=== PATIENT | male | born 1950 | race Asian ===

== ENCOUNTER 2018-11-10 19:30 | Emergency (ER) | payer OTHER ==
[~2018-11-10] VITALS: Ht 182.9 cm; Wt 125.6 kg
[2018-11-10 19:53] LABS: PLATELET COUNT 202 K/uL (142-355)
[2018-11-10] MEDS ORDERED: RISP1TAB PO (19:56)
[2018-11-10] MEDS ORDERED: GRALISE600 MG PO (19:56)
[2018-11-10] MEDS ORDERED: CITALOPRAM20 MG PO (19:57)
[2018-11-10] MEDS ORDERED: LORA1TAB17 PO (19:57)
[2018-11-10] MEDS ORDERED: K-TAB20 MEQ PO (19:58)
[2018-11-10] MEDS ORDERED: MINERI1 TOP (19:59)
[2018-11-10] MEDS ORDERED: QUETIAPINE400 MG PO (20:00)
[2018-11-10] MEDS ORDERED: HYDROCODONE BIT1 TA1 PO (20:00)
[2018-11-10] MEDS ORDERED: FURO20TA67 PO (20:01)
[2018-11-10] MEDS ORDERED: DOCU100C10 PO (20:01)
[2018-11-10] MEDS ORDERED: CARV6.25 PO (20:02)
[2018-11-10] MEDS ORDERED: CLARITIN10 MG PO (20:02)
[2018-11-10] MEDS ORDERED: BRIMONIDINE0.2 % OPTH (20:03)
[2018-11-10] MEDS ORDERED: BIOFREEZE4 % TOP (20:04)
[2018-11-10] MEDS ORDERED: ASPIR-8181 MG PO (20:04)
[2018-11-10] MEDS ORDERED: ASPERCREME LIDOCA4 % EX (20:05)
[2018-11-10] MEDS ORDERED: TYLENOL325 M1 PO (20:06)
[2018-11-10] MEDS ORDERED: TUMS500 MG PO (20:07)
[2018-11-10 20:08] LABS: POTASSIUM 4.4 mmol/L (3.6-5.2)
[2018-11-10] MEDS ORDERED: GABA300C2 PO (20:08)
[2018-11-10 22:40] VITALS: BP 140/80; TEMP 98.2
== END 2018-11-10 23:00 | disposition other institution (70) ==
LOC: ED 19:30
PROVIDERS: Emergency Medicine Emergency Medical Services
DX: F03.91 Unspecified dementia, unspecified severity, with behavioral disturbance (principal); I50.9 Heart failure, unspecified; Z04.6 Encounter for general psychiatric examination, requested by authority
CPT/HCPCS: 36415; 80053; 81000; 83880; 85027; 93005; 99285

== ENCOUNTER 2019-03-22 19:55 | Emergency (ER) | payer OTHER ==
[~2019-03-22] VITALS: Ht 185.4 cm; Wt 122.5 kg
[~2019-03-22 19:55] MED LIST: ABILIFY MYCITE15 MG PO; ASPERCREME LIDOCA4 % EX; ASPIR-8181 MG PO; BIOFREEZE4 % TOP; BRIMONIDINE0.2 % OPTH; CARV6.25 PO; CHOL100034 PO; CITALOPRAM20 MG PO; CLARITIN10 MG PO; DICL1GEL2 TOP; DOCU100C10 PO; ESCI10TA PO; FURO20TA67 PO; GABA300C2 PO; GRALISE600 MG PO; HYDROCODONE BIT1 TA1 PO; K-TAB20 MEQ PO; LORA1TAB17 PO; MINERI1 TOP; QUET100T2 PO; QUET300T PO; QUETIAPINE400 MG PO; RISP1TAB PO; TUMS500 MG PO; TYLENOL325 M1 PO; ZIPR80CA PO
[2019-03-22 20:00] VITALS: BP 164/92; TEMP 97.3
[2019-03-22 20:27] LABS: PLATELET COUNT 180 K/uL (142-355)
[2019-03-22 20:36] LABS: POTASSIUM 3.7 mmol/L (3.6-5.2)
[2019-03-22] MEDS ORDERED: LATUDA40 MG PO (22:51)
[2019-03-22] MEDS ORDERED: SEROQUEL400 MG PO (22:52)
[2019-03-22] MEDS ORDERED: TRAZ50TA36 PO (22:53)
[2019-03-22] MEDS ORDERED: BUDE1AER5 INH (22:55)
[2019-03-22] MEDS ORDERED: ORALONE0.1 % TOP (22:59)
[2019-03-22] MEDS ORDERED: [UNRECOGNIZED DRUG - OTHER] PO (23:00)
[2019-03-22] MEDS ORDERED: B COMPLEX PO (23:00)
[2019-03-22] MEDS ORDERED: VITAMIN D31000 UNIT PO (23:03)
[2019-04-03] MEDS ORDERED: ZIPR20IN IM (09:36)
[2019-04-03] MEDS ORDERED: RISP1TAB PO (09:37)
[2019-04-03] MEDS ORDERED: TRAZ50TA36 PO (09:37)
[2019-04-03] MEDS ORDERED: CHOL100034 PO (09:37)
[2019-04-03] MEDS ORDERED: ABILIFY MYCITE15 MG PO (09:38)
[2019-04-03] MEDS ORDERED: AMOXIL 500MG CAP PO (09:39)
== END 2019-03-22 20:50 | disposition other institution (70) ==
LOC: ED 19:55
PROVIDERS: Student in an Organized Health Care Education/Training Program
DX: F03.91 Unspecified dementia, unspecified severity, with behavioral disturbance (principal); R94.31 Abnormal electrocardiogram [ECG] [EKG]; Z04.6 Encounter for general psychiatric examination, requested by authority
CPT/HCPCS: 80053; 85027; 93005; 99285

== ENCOUNTER 2019-05-26 15:57 | Emergency (ER) | payer OTHER ==
[~2019-05-26] VITALS: Ht 182.9 cm; Wt 127.0 kg
[~2019-05-26 15:57] MED LIST changes: +AMOXIL 500MG CAP PO; +B COMPLEX PO; +BUDE1AER5 INH; +LATUDA40 MG PO; +ORALONE0.1 % TOP; +SEROQUEL400 MG PO; +TRAZ50TA36 PO; +VITAMIN D31000 UNIT PO; +ZIPR20IN IM; +[UNRECOGNIZED DRUG - OTHER] PO
[2019-05-26 16:25] LABS: PLATELET COUNT 175 K/uL (142-355)
[2019-05-26 16:46] LABS: POTASSIUM 4.9 mmol/L (3.6-5.2)
[2019-05-26 16:48] VITALS: BP 146/84; TEMP 98
== END 2019-05-26 16:58 | disposition other institution (70) ==
LOC: ED 15:57
PROVIDERS: Emergency Medicine
DX: F28 Other psychotic disorder not due to a substance or known physiological condition (principal); E11.9 Type 2 diabetes mellitus without complications; R00.0 Tachycardia, unspecified; Z04.6 Encounter for general psychiatric examination, requested by authority
CPT/HCPCS: 80053; 81000; 85027; 93005; 96372; 99283; J1815